=== PATIENT | male | born 1985 | race African-American/Black ===

== ENCOUNTER 2020-07-01 12:51 | Emergency (ER) | payer MEDICAID ==
[~2020-07-01] VITALS: Ht 182.9 cm; Wt 115.7 kg
[2020-07-01 13:34] VITALS: BP 123/94
[2020-07-01 14:17] LABS: Urine Bacteria NONE SEEN /hpf (None Seen); Urine Blood Negative /uL (Negative); Urine Mucus FEW (None Seen); Urine Specific Gravity 1.021 (1.001-1.035); Urine WBC 9 /hpf (0 - 3)
[2020-07-01] MEDS ORDERED: LIDOCAINE 1% HCL (LOCAL ANESTH.) INJ 20ML MDV ONE (14:36)
[2020-07-01] MEDS ORDERED: cefTRIAXone SOD 500 MG VL IM ONE (14:45)
== END 2020-07-01 14:51 | disposition home or self-care (01) ==
LOC: ER 12:51
DX: N39.0 Urinary tract infection, site not specified (principal); F17.210 Nicotine dependence, cigarettes, uncomplicated; J45.909 Unspecified asthma, uncomplicated; Z20.2 Contact with and (suspected) exposure to infections with a predominantly sexual mode of transmission
CPT/HCPCS: 81001; 96372; 99283; J0696; J2001

== ENCOUNTER 2021-06-07 10:32 | Emergency (ER) | payer MEDICAID, OTHER ==
[~2021-06-07] VITALS: Ht 180.3 cm; Wt 94.8 kg
[2021-06-07] MEDS ORDERED: ACETAMINOPHEN 325 MG TAB PO ONE (15:00)
[2021-06-07 15:11] VITALS: BP 134/67
[2021-06-07] MEDS ORDERED: IBUP800T27 PO (16:25)
== END 2021-06-07 16:43 | disposition home or self-care (01) ==
LOC: ER 10:32
DX: S90.32XA Contusion of left foot, initial encounter (principal); S93.402A Sprain of unspecified ligament of left ankle, initial encounter; S39.012A Strain of muscle, fascia and tendon of lower back, initial encounter; S29.012A Strain of muscle and tendon of back wall of thorax, initial encounter; F17.210 Nicotine dependence, cigarettes, uncomplicated; W19.XXXA Unspecified fall, initial encounter; Y93.89 Activity, other specified; Y92.89 Other specified places as the place of occurrence of the external cause; Y99.8 Other external cause status
CPT/HCPCS: 72070; 72100; 73610; 73630